=== PATIENT | male | born 1965 | race Caucasian/White ===

== ENCOUNTER → 2018-05-06 | Outpatient (CLI) | payer BC ==
[~2018-05-06] VITALS: Ht 182.9 cm; Wt 85.3 kg
[~2018-05-06] MED LIST: CENTRUM SILVER1 EAC5 PO; JANUMET 50/11 TABLET PO; LO-DOSE ASPIRIN81 M1 PO; LOPID600 MG PO; PRAVACHOL40 MG PO; VENLAFAXINE HC150 MG PO; ZESTRIL40 MG PO
[2018-05-06 08:50] LABS: CHLORIDE 103 mEq/L (99-109); POTASSIUM 4.3 mEq/L (3.7-5.4); SODIUM 138 mEq/L (136-147)
[2018-05-06 08:52] LABS: GLUCOSE 159 mg/dL (70-99)
[2018-05-06 08:55] LABS: CREATININE 0.9 mg/dL (0.6-1.3); GFR ESTIMATE (CALCULATED) > 59 mL/min/ (58.99-99999)
[2018-05-06 08:56] LABS: UREA NITROGEN (BUN) 15 mg/dL (9-23)
== END | disposition home or self-care (01) ==
LOC: AMB 04-28 09:30 → OPR 04-28 12:00 → AMB 08:05
PROVIDERS: Internal Medicine Gastroenterology
DX: D12.2 Benign neoplasm of ascending colon (principal); K62.1 Rectal polyp; K64.8 Other hemorrhoids; E11.9 Type 2 diabetes mellitus without complications; F41.9 Anxiety disorder, unspecified; K76.0 Fatty (change of) liver, not elsewhere classified; E78.5 Hyperlipidemia, unspecified; I10 Essential (primary) hypertension; K58.9 Irritable bowel syndrome, unspecified; N40.0 Benign prostatic hyperplasia without lower urinary tract symptoms; Z82.49 Family history of ischemic heart disease and other diseases of the circulatory system; Z83.3 Family history of diabetes mellitus; Z87.891 Personal history of nicotine dependence; Z79.82 Long term (current) use of aspirin; Z79.84 Long term (current) use of oral hypoglycemic drugs
CPT/HCPCS: 80048; 82948; 88305; 93005